=== PATIENT | female | born 1965 | race Caucasian/White ===

== ENCOUNTER 2023-11-04 08:18 | Emergency (ER) | payer BC, SELFPAY ==
[2023-11-04 08:22] VITALS: BP 139/79
--- NOTE | 2023-11-04 09:14 | ED.GENMED ---
History of Present Illness
General
Chief Complaint: Abdominal Symptoms
Source: patient
Time Seen by Provider: 11/04/23 08:39
History of Present Illness
History of Present Illness:
57-year-old female with no significant past medical history presenting to the emergency department for evaluation of abdominal discomfort that started this past Sunday accompanied with multiple episodes of watery green diarrhea, unrelieved over the
last few days prompting an urgent care visit on , given Zofran and Bentyl but taking with no relief. Patient states symptoms continued today noting 6 out of 10 pain, continued nausea and diminished p.o. intake. Patient states she feels
little lightheaded but attributes this to some mild dehydration and poor p.o. intake. Patient denies any fevers but states the day symptoms started she did have some chills. No recent travel, no recent antibiotics, no known sick contacts. Patient
has no other concerns. Surgical history was noted for gastric bypass in 2003 and previous cholecystectomy.
Past History
Past History
ED Past Medical History: None
ED Past Surgical History: Cholecystectomy and Other
Social History
Tobacco: Non-smoker
Alcohol: Occasional
Drug: None
Personal:
Living: with family
Employment: Employed
Review of Systems
Review of Systems
All Other Systems: ROS reviewed and negative except as documented in HPI and ROS
Phy Exam
Physical Exam
Physical Exam:
GENERAL: Alert , in no apparent distress
EYE: clear conjunctiva b/l
HEAD: NCAT
ENT: mmm.
CARDIAC: Regular rate and rhythm .
LUNGS: Clear breath sounds bilaterally, no acute respiratory distress, no wheezes/rales/rhonchi
ABDOMEN: Soft, mild diffuse ttp, worse in LLQ, no r/g, no cvat
NEUROLOGICAL: Alert and oriented
SKIN: Warm and dry, skin intact.
MUSCULOSKELETAL: well perfused.
PSYCH: Normal and appropriate interaction.
Scores
Heart Failure Risk
Heart Failure Risk Score: Not Applicable
Heart Score for Chest Pain Patients
STEMI patient?: Not applicable
Withdrawal Assessment of Alcohol
Withdrawal Assessment Completed?: Not applicable
Course
Orders/Labs/Results
Orders:
Orders
11/04/23 08:48
0.9% Sodium Chloride 1000 ml [Nss] 1,000 ml IV BOLUS
11/04/23 08:49
CT Abd/Pel (IV only)-DH only Urgent
Comment:
Reason For Exam: LLQ pain, nausea, diarrhea
11/04/23 09:19
Ondansetron Injectable [Zofran] 4 mg IV NOW STA
11/04/23 09:44
Complete Blood Count/With Diff Urgent
Comprehensive Metabolic Panel Urgent
Lipase Urgent
11/04/23 11:33
STOOL [C difficile Antigen & Toxins] Urgent
HUY Source: Feces/Stool
Specimen Description:
Date Specimen was Collected: 11/04/23
Time Specimen was Collected: 11:32
Stool Culture Urgent
HUY Source: Feces/Stool
Specimen Description:
Date Specimen was Collected: 11/04/23
Time Specimen was Collected: 11:32
Abnormal Lab Results
11/04/23
09:44
MCV 78.0 L fL
(81.0-99.0)
MPV 10.9 H fL
(7.4-10.4)
Absolute Monos (auto) 1.2 H 10^3/uL
(0.1-0.6)
Lymphocytes % 18.5 L %
(20.5-51.1)
Monocytes % 13.4 H %
(1.7-9.3)
Carbon Dioxide 21 L mmol/L
(22-30)
BUN 27 H mg/dl
(7-17)
Creatinine 1.2 H mg/dL
(0.6-1.0)
Glucose 116 H mg/dl
(70-99)
11/04/23 09:44
11/04/23 09:44
Vital Signs
Initial and Last Documented VS:
Initial Vital Signs
Temp Pulse Resp BP Pulse Ox
97.7 F 86 20 139/79 100
11/04/23 08:22 11/04/23 08:22 11/04/23 08:22 11/04/23 08:22 11/04/23 08:22
Last Documented Vital Signs
Temp Pulse Resp BP Pulse Ox
97.7 F 64 18 121/57 96
11/04/23 08:22 11/04/23 12:15 11/04/23 12:15 11/04/23 11:05 11/04/23 12:15
MDM/Problems Addressed
Differential Diagnosis Includes:
C. difficile colitis, pancolitis, diverticulitis, foodborne illness, electrolyte derangement
MDM/Problems Addressed:
57-year-old female presenting to the emergency department for evaluation of diarrhea that has persisted since Sunday, unrelieved with Zofran and Bentyl. Patient maintains some mild nausea but has not had vomiting. Abdomen was diffusely tender but
worse within the left lower part of the abdomen. Afebrile and hemodynamically stable here. Given duration of illness combined with persistent symptoms we will obtain labs, CT imaging and attempt for stool studies. Fluids and Zofran ordered.
Reassessment following
*Radiology
Radiology exam reviewed: radiology read reviewed
*Pulse Oximetry
Patient hypoxic: no
*Critical Care Note
Total Time (30-74mins, 75-104mins- exclusive of procedures): Not Applicable
Patient Management
Escalation/DeEscalation of care consider admission/obs:
Patient CT scan consistent with acute diarrheal illness/colitis. She is afebrile, normal WBC, negative C.Diff stool. Discussed risk vs benefit of abx and at this time decision was made to hold. Patient will contact PCP for follow up. Stool culture
remains pending. Patient aware of return precautions to the ED.
ED Attending Note
-
Portions of this chart may have been created with voice recognition software.� Occasional wrong word or��sound alike� substitutions may have occurred due to the inherent limitations of voice recognition software.
Discharge Plan
Departure
Patient Disposition: Home (Routine Discharge)
Date of Disposition: 11/04/23
Time of Disposition: 12:34
Patient with high blood pressure during this ER visit?: No
Discharge Problem:
Diarrhea
Instructions: Diarrhea, Adult ED
Referrals:
Mirian Shepard MD [Family Provider] -
Stand Alone Forms: Return to Work
Interventions
Interventions:
*Risk Screen - Suicide Last Done: 11/04/23 09:33
*General Assessment Last Done: 11/04/23 09:33
*Neglect/Abuse Screening Last Done: 11/04/23 09:33
ED- Fall Risk Assessment Last Done: 11/04/23 09:33
*ED COVID-19 Vaccine History Last Done: 11/04/23 09:33
*Nursing Disposition Last Done: 11/04/23 12:57
VB-Bumvqh-Kkzycmydao Assessment Last Done: 11/04/23 09:33
Discharge Date and Time
Discharge Date/Time: 11/04/23 12:57
Print Language: YORUBA
[2023-11-04 09:33] VITALS: BMI 35.8
[2023-11-04 09:35] VITALS: BP 121/69
[2023-11-04] MEDS: NSS 1000 IV (09:49)
[2023-11-04] MEDS: ZOFRAN 4 MG IV (09:49)
[2023-11-04 09:59] LABS: % Basophils 0.9 % (0-2); % Eosinophils 1.1 % (0-6); % Immature Granulocytes 0.5 % (0-0.5); % Lymphocytes 18.5 % (20.5-51.1); % Monocytes 13.4 % (1.7-9.3); % Neutrophils 65.6 % (42.2-75.2); Absolute Basophils 0.1 10^3/uL (0-0.2); Absolute Eosinophils 0.1 10^3/uL (0-0.7); Absolute Lymphocytes 1.6 10^3/uL (1.2-3.4); Absolute Monocytes 1.2 10^3/uL (0.1-0.6); Absolute Neutrophils 5.8 10^3/uL (1.4-6.5); Hematocrit 41.9 % (37.0-47.0); Hemoglobin 14.9 g/dL (12.0-16.0); Mean Corp Hgb Conc. 35.6 g/dL (33.0-37.0); Mean Corpuscular Hgb 27.7 pg (27.0-31.0); Mean Platelet Volume 10.9 fL (7.4-10.4); Nucleated Red Blood Cells % 0 %; Platelet Count 369 10^3/uL (130-400); Red Blood Cell Count 5.37 10^6/uL (4.20-5.40); Red Cell Dist. Width 12.4 % (11.5-14.5); White Blood Cell Count 8.9 10^3/uL (4.8-10.8)
[2023-11-04 10:00] VITALS: BP 117/63
[2023-11-04 10:20] LABS: ALT (SGPT) 13 U/L (0-35); AST (SGOT) 19 U/L (14-36); Albumin 4.5 g/dl (3.5-5.0); Alkaline Phosphatase 98 U/L (38-126); Blood Urea Nitrogen 27 mg/dl (7-17); Calcium 9.8 mg/dl (8.4-10.2); Carbon Dioxide 21 mmol/L (22-30); Chloride 101 mmol/L (98-107); Estimated Creatinine Clearance 56 ml/min; Glucose 116 mg/dl (70-99); Lipase 111 U/L (23-300); Potassium 3.6 mmol/L (3.5-5.1); Sodium 138 mmol/L (135-145); Total Bilirubin 0.7 mg/dl (0.2-1.3); eGFR 52.14
[2023-11-04 11:05] VITALS: BP 121/57
== END 2023-11-04 12:57 | disposition home or self-care (01) ==
LOC: EMR 08:18
PROVIDERS: Physician Assistant Medical; EMERGENCY PHYSICIAN Student in an Organized Health Care Education/Training Program; FAMILY PHYSICIAN Family Medicine
DX: R19.7 Diarrhea, unspecified (principal)
CPT/HCPCS: 99285; 96374; 96361; 74177; 80053; 83690; 85025; 87045; 87046; 87324; 87427; 87449; Q9967